=== PATIENT | female | born 1940 | race Hispanic/Latino ===

== ENCOUNTER 2020-05-04 17:22 | Inpatient (IN) | payer BC, MEDICARE, OTHER ==
[~2020-05-04] VITALS: Ht 144.8 cm; Wt 50.7 kg
[2020-05-04 17:53] LABS: ABG BASE EXCESS 1.7 mmol/L (-2.0-3.0); ABG HCO3 26.2 mmol/L (21.0-28.0); ABG OXYGEN SATURATION 89.9 % (95.0-99.0); ABG PCO2 41 mmHg (32-45)
[2020-05-04 17:54] LABS: BASOPHILS % (AUTO) 0.2 % (0.0-5.0); EOSINOPHILS % (AUTO) 0.1 % (0.0-8.0); HEMATOCRIT 31.6 % (36-48); LYMPHOCYTES % (AUTO) 13.2 % (21.0-51.0); MEAN CORPUSCULAR HEMOGLOBIN 29.6 pg (27.0-33.0); MEAN CORPUSCULAR HGB CONC 33.5 g/dL (32.0-36.0); MEAN CORPUSCULAR VOLUME 88.3 fL (79-99); NEUTROPHILS % (AUTO) 76.6 % (40.0-77.0); PLATELET COUNT (AUTO) 310 K/uL (130-400); RED BLOOD CELL COUNT(AUTO) 3.58 MIL/uL (4.00-5.50); RED CELL DISTRIBUTION WIDTH 13.4 % (11.0-15.5); WHITE BLOOD COUNT (AUTO) 8.7 K/uL (4.8-10.8)
[2020-05-04 18:16] LABS: INR 1.06 (0.85-1.15); PROTHROMBIN TIME 11.3 SEC (9.6-11.6)
[2020-05-04 18:18] LABS: PARTIAL THROMBOPLASTIN TIME 25.9 SEC (26.3-35.5)
[2020-05-04 18:19] LABS: ALBUMIN 2.8 g/dL (3.5-5.0); BILIRUBIN,TOTAL 0.5 mg/dL (0.2-1.0); POTASSIUM 3.9 mmol/L (3.5-5.1); TOTAL PROTEIN, SERUM 8.2 g/dL (6.0-8.3)
[2020-05-04 18:29] LABS: B-TYPE NATRIURETIC PEPTIDE 120 pg/mL (0-100)
[2020-05-04 18:37] LABS: CREATININE 1.2 mg/dL (0.5-1.5)
[2020-05-04] MEDS ORDERED: CEFTRIAXONE 1G VIAL ONE ×2 (19:04→21:49)
[2020-05-04] MEDS ORDERED: AZITHROMYCIN 500MG+NS 250ML 250 ML IV ONE (19:04)
[2020-05-04] MEDS ORDERED: LACTULOSE 20 GM/30 ML UDCUP PO PRN (20:15)
[2020-05-04] MEDS ORDERED: DOXYCYCLINE 100MG+NS 250ML IV SCH (20:15)
[2020-05-04] MEDS ORDERED: DiphenhydrAMINE HCL 50 MG/ML VIAL IV PRN (20:15)
[2020-05-04] MEDS ORDERED: ERGOCALCIFEROL (VITAMIN D2) 50,000 UNIT CAPSULE PO ONE (20:15)
[2020-05-04] MEDS ORDERED: DIPHENHYDRAMINE HCL 25 MG CAPSULE PO PRN (20:15)
[2020-05-04] MEDS ORDERED: ONDANSETRON 4MG INJ IV PRN (20:15)
[2020-05-04] MEDS ORDERED: MAG/ALUM/SIMETH 30 ML UDCUP PO PRN (20:15)
[2020-05-04] MEDS ORDERED: GUAIFENESIN-DM 200/20 MG 10 ML PO PRN (20:15)
[2020-05-04] MEDS ORDERED: NITROGLYCERIN 0.4 MG SL TAB SL PRN (20:15)
[2020-05-04] MEDS: DEXAMETHASONE SOD PHOSPHATE 4 MG/ML 1ML VIAL IVP SCH (20:15)
[2020-05-04] MEDS: CEFTRIAXONE 1G VIAL IVP SCH (20:15)
[2020-05-04] MEDS ORDERED: ACETAMINOPHEN 325 MG TAB PO PRN ×2 (20:15)
[2020-05-04] MEDS ORDERED: ASPIRIN 325 MG TABLET ONE (20:29)
[2020-05-04] MEDS ORDERED: LORAZEPAM 1 MG TABLET PO ONE (21:00)
[2020-05-04] MEDS: ACETYLCYSTEINE 600 MG CAPSULE PO SCH (21:00)
[2020-05-04] MEDS: DOXYCYCLINE 100MG+NS 250ML 250 ML IV SCH (21:00)
[2020-05-04] MEDS: BUSPIRONE HCL 5 MG TABLET PO SCH (21:00)
[2020-05-04 21:30] LABS: HEMOGLOBIN A1C 6.8 % (4.0-6.0)
[2020-05-04] MEDS ORDERED: ERGOCALCIFEROL (VITAMIN D2) 50,000 UNIT CAPSULE ONE (21:47)
[2020-05-04] MEDS ORDERED: DEXAMETHASONE SOD PHOSPHATE 4 MG/ML 5ML VIAL ONE (21:48)
[2020-05-04] MEDS ORDERED: ACETYLCYSTEINE 600 MG CAPSULE ONE (21:48)
[2020-05-04] MEDS ORDERED: LORAZEPAM 1 MG TABLET ONE (21:49)
[2020-05-04] MEDS ORDERED: DOXYCYCLINE 100MG+NS 250ML 250 ML IV ONE (21:49)
[2020-05-04] MEDS ORDERED: FAMOTIDINE 20MG VIAL IV ONE (21:50)
[2020-05-05] VITALS: BP 144/65
[2020-05-05 05:03] VITALS: BP 141/77
[2020-05-05 05:08] LABS: HEMATOCRIT 27.5 % (36-48); LYMPHOCYTES % (AUTO) 10.7 % (21.0-51.0); MEAN CORPUSCULAR HEMOGLOBIN 30.2 pg (27.0-33.0); MEAN CORPUSCULAR HGB CONC 33.8 g/dL (32.0-36.0); MEAN CORPUSCULAR VOLUME 89.3 fL (79-99); MONOCYTES % (AUTO) 3.2 % (3.0-13.0); NEUTROPHILS % (AUTO) 85.1 % (40.0-77.0); PLATELET COUNT (AUTO) 269 K/uL (130-400); RED BLOOD CELL COUNT(AUTO) 3.08 MIL/uL (4.00-5.50); RED CELL DISTRIBUTION WIDTH 13.4 % (11.0-15.5); WHITE BLOOD COUNT (AUTO) 6.2 K/uL (4.8-10.8)
[2020-05-05 05:29] LABS: ALBUMIN 2.7 g/dL (3.5-5.0); BILIRUBIN,TOTAL 0.4 mg/dL (0.2-1.0); CRP QUANTITATIVE 43.7 mg/L (0.00-9.0); POTASSIUM 4.5 mmol/L (3.5-5.1); TOTAL PROTEIN, SERUM 7.5 g/dL (6.0-8.3)
[2020-05-05] MEDS: INSULIN HUMULIN R 100 UNIT/ML 3ML SQ SCH ×4 (05:52→20:41)
[2020-05-05 08:00] VITALS: BP 151/63
[2020-05-05] MEDS: CEFTRIAXONE 1G VIAL IVP SCH ×2 (08:47→20:39)
[2020-05-05] MEDS: BUSPIRONE HCL 5 MG TABLET PO SCH ×2 (08:47→20:39)
[2020-05-05] MEDS: ENOXAPARIN SODIUM 40 MG/0.4 ML SYRINGE SQ SCH (08:47)
[2020-05-05] MEDS: DOXYCYCLINE 100MG+NS 250ML 250 ML IV SCH ×2 (08:47→20:40)
[2020-05-05] MEDS: FAMOTIDINE 20MG TAB PO SCH (08:48)
[2020-05-05] MEDS: ASCORBIC ACID 500 MG TAB PO SCH (08:48)
[2020-05-05] MEDS: ACETYLCYSTEINE 600 MG CAPSULE PO SCH ×2 (08:48→20:39)
[2020-05-05] MEDS: ZINC SULFATE 220 CAPSULE PO SCH (08:48)
[2020-05-05] MEDS ORDERED: FAMOTIDINE 20MG VIAL IV SCH (09:00)
[2020-05-05] MEDS: PHARMACY COMMUNICATION**REMDESIVIR ORDER MISC SCH ×4 (10:00→20:09)
[2020-05-05] MEDS ORDERED: FOLI1TAB85 PO (11:16)
[2020-05-05] MEDS ORDERED: ATOR-2 PO (11:16)
[2020-05-05] MEDS ORDERED: AMLO5TAB4 PO (11:16)
[2020-05-05] MEDS ORDERED: BUSP5TAB3 PO (11:16)
[2020-05-05] MEDS ORDERED: METO75TA PO (11:16)
[2020-05-05] MEDS ORDERED: INSLAN SQ (11:16)
[2020-05-05 12:00] VITALS: BP 124/53
[2020-05-05 16:07] VITALS: BP 129/48
[2020-05-05] MEDS: DEXAMETHASONE SOD PHOSPHATE 4 MG/ML 1ML VIAL IVP SCH (20:39)
[2020-05-05] MEDS: INSULIN GLARGINE 100 UNITS/ML 10 ML VIAL SQ SCH (20:41)
[2020-05-05 21:37] VITALS: BP 168/74
[2020-05-06] VITALS (7 sets, daily range): BP systolic 134–188; BP diastolic 44–79
[2020-05-06] MEDS: PHARMACY COMMUNICATION**REMDESIVIR ORDER MISC SCH ×6 (02:00→22:00)
[2020-05-06 05:42] LABS: HEMATOCRIT 29.8 % (36-48); LYMPHOCYTES % (AUTO) 9.4 % (21.0-51.0); MEAN CORPUSCULAR HEMOGLOBIN 29.3 pg (27.0-33.0); MEAN CORPUSCULAR HGB CONC 32.9 g/dL (32.0-36.0); MEAN CORPUSCULAR VOLUME 89.2 fL (79-99); MONOCYTES % (AUTO) 3.7 % (3.0-13.0); NEUTROPHILS % (AUTO) 86.4 % (40.0-77.0); PLATELET COUNT (AUTO) 304 K/uL (130-400); RED BLOOD CELL COUNT(AUTO) 3.34 MIL/uL (4.00-5.50); RED CELL DISTRIBUTION WIDTH 13.3 % (11.0-15.5); WHITE BLOOD COUNT (AUTO) 8.4 K/uL (4.8-10.8)
[2020-05-06 06:10] LABS: ALBUMIN 2.5 g/dL (3.5-5.0); BILIRUBIN,TOTAL 0.4 mg/dL (0.2-1.0); CRP QUANTITATIVE 22.4 mg/L (0.00-9.0); POTASSIUM 4.2 mmol/L (3.5-5.1); TOTAL PROTEIN, SERUM 7.4 g/dL (6.0-8.3)
[2020-05-06] MEDS: INSULIN HUMULIN R 100 UNIT/ML 3ML SQ SCH ×4 (06:30→21:00)
[2020-05-06] MEDS: AMLODIPINE 5 MG TAB PO SCH (09:20)
[2020-05-06] MEDS: ZINC SULFATE 220 CAPSULE PO SCH (09:20)
[2020-05-06] MEDS: FAMOTIDINE 20MG TAB PO SCH (09:20)
[2020-05-06] MEDS: ACETYLCYSTEINE 600 MG CAPSULE PO SCH ×2 (09:20→20:48)
[2020-05-06] MEDS: BUSPIRONE HCL 5 MG TABLET PO SCH ×3 (09:20→20:48)
[2020-05-06] MEDS: ASCORBIC ACID 500 MG TAB PO SCH (09:20)
[2020-05-06] MEDS: CEFTRIAXONE 1G VIAL IVP SCH ×2 (09:21→20:47)
[2020-05-06] MEDS: DOXYCYCLINE 100MG+NS 250ML 250 ML IV SCH ×2 (09:22→20:47)
[2020-05-06] MEDS: ENOXAPARIN SODIUM 40 MG/0.4 ML SYRINGE SQ SCH (09:22)
[2020-05-06] MEDS: METOPROLOL TARTRATE 50 MG TAB PO SCH ×2 (10:00→20:48)
[2020-05-06] MEDS: DEXAMETHASONE SOD PHOSPHATE 4 MG/ML 1ML VIAL IVP SCH (20:47)
[2020-05-06] MEDS: INSULIN GLARGINE 100 UNITS/ML 10 ML VIAL SQ SCH (20:58)
[2020-05-07] MEDS: PHARMACY COMMUNICATION**REMDESIVIR ORDER MISC SCH ×7 (02:00→23:00)
[2020-05-07 07:02] VITALS: BP 136/63
[2020-05-07 07:26] VITALS: BP 153/70
[2020-05-07] MEDS: INSULIN HUMULIN R 100 UNIT/ML 3ML SQ SCH ×4 (07:30→20:49)
[2020-05-07 08:47] LABS: HEMATOCRIT 30.7 % (36-48); LYMPHOCYTES % (AUTO) 8.6 % (21.0-51.0); MEAN CORPUSCULAR HEMOGLOBIN 30.1 pg (27.0-33.0); MEAN CORPUSCULAR HGB CONC 34.2 g/dL (32.0-36.0); MONOCYTES % (AUTO) 4.3 % (3.0-13.0); NEUTROPHILS % (AUTO) 86.7 % (40.0-77.0); PLATELET COUNT (AUTO) 320 K/uL (130-400); RED BLOOD CELL COUNT(AUTO) 3.49 MIL/uL (4.00-5.50); RED CELL DISTRIBUTION WIDTH 13.2 % (11.0-15.5); WHITE BLOOD COUNT (AUTO) 9.4 K/uL (4.8-10.8)
[2020-05-07] MEDS: ACETYLCYSTEINE 600 MG CAPSULE PO SCH ×2 (08:54→20:48)
[2020-05-07] MEDS: FAMOTIDINE 20MG TAB PO SCH (08:54)
[2020-05-07] MEDS: CEFTRIAXONE 1G VIAL IVP SCH ×2 (08:54→20:48)
[2020-05-07] MEDS: BUSPIRONE HCL 5 MG TABLET PO SCH ×3 (08:55→20:48)
[2020-05-07] MEDS: ASCORBIC ACID 500 MG TAB PO SCH (08:55)
[2020-05-07] MEDS: ZINC SULFATE 220 CAPSULE PO SCH (08:55)
[2020-05-07] MEDS: AMLODIPINE 5 MG TAB PO SCH (08:55)
[2020-05-07] MEDS: DOXYCYCLINE 100MG+NS 250ML 250 ML IV SCH ×2 (08:55→20:51)
[2020-05-07] MEDS: ENOXAPARIN SODIUM 40 MG/0.4 ML SYRINGE SQ SCH (08:56)
[2020-05-07] MEDS: METOPROLOL TARTRATE 50 MG TAB PO SCH ×2 (09:00→20:47)
[2020-05-07 09:02] LABS: ALBUMIN 2.7 g/dL (3.5-5.0); BILIRUBIN,TOTAL 0.5 mg/dL (0.2-1.0); CRP QUANTITATIVE 9.1 mg/L (0.00-9.0); POTASSIUM 4.2 mmol/L (3.5-5.1); TOTAL PROTEIN, SERUM 7.6 g/dL (6.0-8.3)
[2020-05-07 11:27] VITALS: BP 125/61
[2020-05-07] MEDS: PHARMACY COMMUNICATION MISC SCH ×4 (12:14→23:00)
[2020-05-07 16:00] VITALS: BP 171/71
[2020-05-07] MEDS ORDERED: ZIPRASIDONE MESYLATE 20 MG/VIAL IM SCH (17:00)
[2020-05-07 20:00] VITALS: BP 168/72
[2020-05-07] MEDS: DEXAMETHASONE SOD PHOSPHATE 4 MG/ML 1ML VIAL IVP SCH (20:48)
[2020-05-07] MEDS: INSULIN GLARGINE 100 UNITS/ML 10 ML VIAL SQ SCH (20:49)
[2020-05-08] MEDS: INSULIN HUMULIN R 100 UNIT/ML 3ML SQ SCH ×4 (05:08→21:00)
[2020-05-08 06:04] LABS: BASOPHILS % (AUTO) 0.1 % (0.0-5.0); LYMPHOCYTES % (AUTO) 10.5 % (21.0-51.0); MEAN CORPUSCULAR HEMOGLOBIN 29.2 pg (27.0-33.0); MEAN CORPUSCULAR HGB CONC 33.2 g/dL (32.0-36.0); MEAN CORPUSCULAR VOLUME 87.8 fL (79-99); MONOCYTES % (AUTO) 2.2 % (3.0-13.0); NEUTROPHILS % (AUTO) 86.8 % (40.0-77.0); PLATELET COUNT (AUTO) 328 K/uL (130-400); RED BLOOD CELL COUNT(AUTO) 3.53 MIL/uL (4.00-5.50); RED CELL DISTRIBUTION WIDTH 13.2 % (11.0-15.5); WHITE BLOOD COUNT (AUTO) 7.7 K/uL (4.8-10.8)
[2020-05-08 07:16] LABS: ALBUMIN 2.6 g/dL (3.5-5.0); BILIRUBIN,TOTAL 0.5 mg/dL (0.2-1.0); CREATININE 1.2 mg/dL (0.5-1.5); CRP QUANTITATIVE 4.9 mg/L (0.00-9.0); POTASSIUM 4.4 mmol/L (3.5-5.1); TOTAL PROTEIN, SERUM 7.2 g/dL (6.0-8.3)
[2020-05-08 08:00] VITALS: BP 191/81
[2020-05-08] MEDS: PHARMACY COMMUNICATION MISC SCH ×4 (08:00→20:00)
[2020-05-08] MEDS: FAMOTIDINE 20MG TAB PO SCH (09:47)
[2020-05-08] MEDS: ASCORBIC ACID 500 MG TAB PO SCH (09:47)
[2020-05-08] MEDS: METOPROLOL TARTRATE 50 MG TAB PO SCH ×3 (09:47→21:00)
[2020-05-08] MEDS: CEFTRIAXONE 1G VIAL IVP SCH ×3 (09:47→20:48)
[2020-05-08] MEDS: ACETYLCYSTEINE 600 MG CAPSULE PO SCH ×3 (09:48→21:00)
[2020-05-08] MEDS: AMLODIPINE 5 MG TAB PO SCH (09:48)
[2020-05-08] MEDS: BUSPIRONE HCL 5 MG TABLET PO SCH ×4 (09:48→21:00)
[2020-05-08] MEDS: ZINC SULFATE 220 CAPSULE PO SCH (09:48)
[2020-05-08] MEDS: DOXYCYCLINE 100MG+NS 250ML 250 ML IV SCH ×3 (09:49→21:00)
[2020-05-08] MEDS: ENOXAPARIN SODIUM 40 MG/0.4 ML SYRINGE SQ SCH (09:49)
[2020-05-08] MEDS: PHARMACY COMMUNICATION**REMDESIVIR ORDER MISC SCH ×4 (10:36→22:00)
[2020-05-08 12:00] VITALS: BP 181/75
[2020-05-08 16:00] VITALS: BP 187/77
[2020-05-08] MEDS ORDERED: ZIPRASIDONE MESYLATE 20 MG/VIAL IM PRN ×2 (16:30→21:00)
[2020-05-08 19:47] VITALS: BP 160/70
[2020-05-08] MEDS: HYDRALAZINE 25MG TABLET PO SCH ×2 (20:47→21:00)
[2020-05-08] MEDS: TRAZODONE HCL 50 MG TAB PO SCH (20:47)
[2020-05-08] MEDS: DEXAMETHASONE SOD PHOSPHATE 4 MG/ML 1ML VIAL IVP SCH (20:48)
[2020-05-08] MEDS: INSULIN GLARGINE 100 UNITS/ML 10 ML VIAL SQ SCH (20:52)
[2020-05-09] VITALS (7 sets, daily range): BP systolic 113–186; BP diastolic 55–79
[2020-05-09] MEDS: PHARMACY COMMUNICATION**REMDESIVIR ORDER MISC SCH ×2 (02:00→06:00)
[2020-05-09] MEDS: PHARMACY COMMUNICATION MISC SCH ×3 (04:00→08:00)
[2020-05-09 06:12] LABS: EOSINOPHILS % (AUTO) 0.1 % (0.0-8.0); HEMATOCRIT 29.7 % (36-48); LYMPHOCYTES % (AUTO) 19.5 % (21.0-51.0); MEAN CORPUSCULAR HEMOGLOBIN 29.7 pg (27.0-33.0); MEAN CORPUSCULAR VOLUME 87.4 fL (79-99); MONOCYTES % (AUTO) 10.7 % (3.0-13.0); NEUTROPHILS % (AUTO) 69.3 % (40.0-77.0); PLATELET COUNT (AUTO) 280 K/uL (130-400); RED CELL DISTRIBUTION WIDTH 13.1 % (11.0-15.5); WHITE BLOOD COUNT (AUTO) 6.7 K/uL (4.8-10.8)
[2020-05-09 06:26] LABS: POTASSIUM 3.9 mmol/L (3.5-5.1)
[2020-05-09] MEDS: INSULIN HUMULIN R 100 UNIT/ML 3ML SQ SCH ×4 (06:28→21:00)
[2020-05-09] MEDS: FLUOXETINE HCL 10 MG CAPSULE PO SCH (09:00)
[2020-05-09] MEDS: ASCORBIC ACID 500 MG TAB PO SCH (09:15)
[2020-05-09] MEDS: AMLODIPINE 5 MG TAB PO SCH (09:16)
[2020-05-09] MEDS: FAMOTIDINE 20MG TAB PO SCH (09:16)
[2020-05-09] MEDS: HYDRALAZINE 25MG TABLET PO SCH (09:16)
[2020-05-09] MEDS: METOPROLOL TARTRATE 50 MG TAB PO SCH (09:16)
[2020-05-09] MEDS: ENOXAPARIN SODIUM 40 MG/0.4 ML SYRINGE SQ SCH (09:18)
[2020-05-09] MEDS: CEFTRIAXONE 1G VIAL IVP SCH ×2 (09:24→20:04)
[2020-05-09] MEDS: ZINC SULFATE 220 CAPSULE PO SCH (09:29)
[2020-05-09] MEDS: BUSPIRONE HCL 5 MG TABLET PO SCH ×2 (14:00→20:25)
[2020-05-09 14:03] LABS: THYROID STIMULATING HORMONE 0.6 uIU/mL (0.36-3.74)
[2020-05-09] MEDS: TRAZODONE HCL 50 MG TAB PO SCH (20:02)
[2020-05-09] MEDS: DEXAMETHASONE SOD PHOSPHATE 4 MG/ML 1ML VIAL IVP SCH (20:03)
[2020-05-09] MEDS: DOXYCYCLINE 100MG+NS 250ML 250 ML IV SCH (20:05)
[2020-05-09] MEDS: ACETYLCYSTEINE 600 MG CAPSULE PO SCH (20:25)
[2020-05-09] MEDS: INSULIN GLARGINE 100 UNITS/ML 10 ML VIAL SQ SCH (21:00)
[2020-05-10 03:45] VITALS: BP 152/67
[2020-05-10 05:26] LABS: MEAN CORPUSCULAR HEMOGLOBIN 29.5 pg (27.0-33.0); MEAN CORPUSCULAR HGB CONC 33.6 g/dL (32.0-36.0); MEAN CORPUSCULAR VOLUME 87.8 fL (79-99); MONOCYTES % (AUTO) 1.6 % (3.0-13.0); PLATELET COUNT (AUTO) 292 K/uL (130-400); RED BLOOD CELL COUNT(AUTO) 3.76 MIL/uL (4.00-5.50); RED CELL DISTRIBUTION WIDTH 13.1 % (11.0-15.5); WHITE BLOOD COUNT (AUTO) 5.6 K/uL (4.8-10.8)
[2020-05-10 05:34] LABS: CREATININE 1.1 mg/dL (0.5-1.5); POTASSIUM 4.5 mmol/L (3.5-5.1)
[2020-05-10] MEDS: INSULIN HUMULIN R 100 UNIT/ML 3ML SQ SCH ×4 (05:50→20:46)
[2020-05-10] MEDS: CEFTRIAXONE 1G VIAL IVP SCH (10:06)
[2020-05-10] MEDS: ENOXAPARIN SODIUM 40 MG/0.4 ML SYRINGE SQ SCH (10:06)
[2020-05-10] MEDS: BUSPIRONE HCL 5 MG TABLET PO SCH ×2 (10:07→14:30)
[2020-05-10] MEDS: DOXYCYCLINE 100MG+NS 250ML 250 ML IV SCH (10:07)
[2020-05-10] MEDS: METOPROLOL TARTRATE 50 MG TAB PO SCH ×2 (10:08→20:46)
[2020-05-10] MEDS: ASCORBIC ACID 500 MG TAB PO SCH (10:08)
[2020-05-10] MEDS: FLUOXETINE HCL 10 MG CAPSULE PO SCH (10:08)
[2020-05-10] MEDS: HYDRALAZINE 25MG TABLET PO SCH ×2 (10:08→20:37)
[2020-05-10] MEDS: FAMOTIDINE 20MG TAB PO SCH (10:08)
[2020-05-10] MEDS: ZINC SULFATE 220 CAPSULE PO SCH (10:09)
[2020-05-10 10:15] VITALS: BP 158/67
[2020-05-10] MEDS ORDERED: ASPI-1005 PO (12:19)
[2020-05-10] MEDS ORDERED: DEXA6TAB7 PO (12:19)
[2020-05-10] MEDS ORDERED: PANT40TA55 PO (12:19)
[2020-05-10] MEDS ORDERED: AMLO10TA4 PO (12:19)
[2020-05-10] MEDS: ACETYLCYSTEINE 600 MG CAPSULE PO SCH ×2 (14:30→20:36)
[2020-05-10 18:04] VITALS: BP 135/68
[2020-05-10 19:00] VITALS: BP 132/51
[2020-05-10] MEDS: DEXAMETHASONE SOD PHOSPHATE 4 MG/ML 1ML VIAL IVP SCH (20:34)
[2020-05-10] MEDS: INSULIN GLARGINE 100 UNITS/ML 10 ML VIAL SQ SCH (20:48)
[2020-05-10 23:00] VITALS: BP 133/53
[2020-05-11 04:00] VITALS: BP 104/52
[2020-05-11] MEDS: INSULIN HUMULIN R 100 UNIT/ML 3ML SQ SCH (07:30)
[2020-05-11 08:00] VITALS: BP 173/77
[2020-05-11] MEDS: ACETYLCYSTEINE 600 MG CAPSULE PO SCH (09:29)
[2020-05-11] MEDS: METOPROLOL TARTRATE 50 MG TAB PO SCH (09:30)
[2020-05-11] MEDS: ASCORBIC ACID 500 MG TAB PO SCH (09:30)
[2020-05-11] MEDS: FLUOXETINE HCL 10 MG CAPSULE PO SCH (09:30)
[2020-05-11] MEDS: FAMOTIDINE 20MG TAB PO SCH (09:31)
[2020-05-11] MEDS: HYDRALAZINE 25MG TABLET PO SCH (09:31)
[2020-05-11] MEDS: AMLODIPINE 5 MG TAB PO SCH (09:31)
[2020-05-11] MEDS: ENOXAPARIN SODIUM 40 MG/0.4 ML SYRINGE SQ SCH (09:32)
[2020-05-11] MEDS: ZINC SULFATE 220 CAPSULE PO SCH (09:33)
[2020-05-11 15:30] VITALS: BP 138/60
== END 2020-05-11 15:35 | disposition home or self-care (01) | DRG 177 ==
LOC: EDH 17:22 → EDHIP 20:15 → 2AH 23:14
PROVIDERS: ADMIT Family Medicine; ATTEND Family Medicine
PROC: XW13325 Transfusion of Convalescent Plasma (Nonautologous) into Peripheral Vein, Percutaneous Approach, New Technology Group 5 (ICD-10-PCS; principal; 2020-05-05)
DX: U07.1 COVID-19 (principal); J12.82 Pneumonia due to coronavirus disease 2019; J96.01 Acute respiratory failure with hypoxia; N39.0 Urinary tract infection, site not specified; G93.49 Other encephalopathy; F05 Delirium due to known physiological condition; E11.51 Type 2 diabetes mellitus with diabetic peripheral angiopathy without gangrene; I12.9 Hypertensive chronic kidney disease with stage 1 through stage 4 chronic kidney disease, or unspecified chronic kidney disease; E78.5 Hyperlipidemia, unspecified; N18.9 Chronic kidney disease, unspecified; F32.9 Major depressive disorder, single episode, unspecified; F03.90 Unspecified dementia, unspecified severity, without behavioral disturbance, psychotic disturbance, mood disturbance, and anxiety; E11.22 Type 2 diabetes mellitus with diabetic chronic kidney disease; R53.81 Other malaise; Z83.3 Family history of diabetes mellitus; Z74.01 Bed confinement status
CPT/HCPCS: 36415; 36600; 70450; 71045; 71250; 80048; 80053; 82550; 82607; 82728; 82803; 82948; 83036; 83605; 83615; 83880; 84145; 84443; 85025; 85378; 85610; 85730; 86140; 86850; 86900; 86901; 86927; 87040; 87077; 87186; 87426; 93005; 93970; 94760; 99291; G0378; J0456; J0696; J1100; J1650; J3486; J3490

== ENCOUNTER → 2023-04-01 | Outpatient (CLI) | payer OTHER ==
[~2023-04-01] MED LIST: AMLO10TA4 PO; ASPI-1005 PO; ATOR-2 PO; BUSP5TAB3 PO; DEXA6TAB7 PO; FOLI1TAB85 PO; INSLAN SQ; IOHEXOL-350 50ML VIAL IV ONE; METO75TA PO; PANT40TA55 PO
== END | disposition home or self-care (01) ==
LOC: RAH 08:43
PROVIDERS: ATTEND Internal Medicine
DX: G31.9 Degenerative disease of nervous system, unspecified (principal); R41.3 Other amnesia; R90.82 White matter disease, unspecified
CPT/HCPCS: 70470; Q9967

== ENCOUNTER → 2023-08-05 | Outpatient (CLI) | payer OTHER ==
[~2023-08-05] MED LIST changes: -IOHEXOL-350 50ML VIAL IV ONE
== END | disposition home or self-care (01) ==
LOC: RAH 12:55
PROVIDERS: ATTEND Internal Medicine
DX: I08.8 Other rheumatic multiple valve diseases (principal); R01.1 Cardiac murmur, unspecified
CPT/HCPCS: 93306

== ENCOUNTER → 2024-03-09 | Outpatient (CLI) | payer OTHER ==
--- NOTE | 2024-03-16 06:49 | HMCSR ---
APPROVED REPORT Laterality: Bilateral Doppler Spectral Velocity Analysis PSV / EDVPSV / EDV ECA (R) 198 / cm/sECA (L) 218 / cm/s dICA (R) 141 / 27 cm/sdICA (L) 246 / 31 cm/s Leonidas (R) 125 / 25 cm/smICA (L) 139 / 28 cm/s pICA (R) 223 / 36 cm/spICA (L) 122 / 20 cm/s dCCA (R) 88 / 14 cm/sdCCA (L) 107 / 16 cm/s mCCA (R) 76 / 17 cm/smCCA (L) 87 / 14 cm/s pCCA (R) 88 / 11 cm/spCCA (L) 73 / 15 cm/s Vert (R) 94 / cm/sVert (L) 87 / cm/s Subl. (R) 218 / cm/sSubl. (L) 131 / cm/s ICA/CCA 2.53ICA/CCA 2.30 Technologist Impression Mild heterogenous plaque noted in the bilateral carotid arteries. There is evidence of 60-70% stenosis in the right and left internal carotid artery. Tortuosity noted in the left internal carotid artery. Elevated velocities noted in the bilateral external carotid arteries. The bilateral vertebral arteries reflect antegrade flow. Elevated velocities noted in the right subclavian artery. Conclusion There is evidence of 60-70% stenosis in the right and left internal carotid artery. Conclusion There is evidence of 60-70% stenosis in the right and left internal carotid artery.
--- NOTE | 2024-03-16 06:49 | HMCSR ---
APPROVED REPORT Renal Artery Doppler Origin (R) 155.2/29.1 cm/secOrigin (L) 215.9/43.7 cm/sec Proximal (R) 154.8/25.8 cm/secProximal (L) 114.0/26.7 cm/sec Mid (R) 158.8/21.8 cm/secMid (L) 111.6/12.1 cm/sec Distal (R) 121.1/25.8 cm/secDistal (L) 133.4/24.3 cm/sec Renal/Aorta Ratio (R) 0.61Renal Aorta Ratio (L) 0.83 Resistive Index (R) 0.82Resistive Index (L) 0.75 Segmental A. (R) 101.5/18.5 cm/secLt. Segmental A. (L) 87.3/21.8 cm/sec Renal Measurements Kidney Size (R) 9.2x4.9x cmKidney Size (L)8.5x4.3x cm Aortic Doppler VelocityWaveform Aorta Mid. 259.0 cm/sec Technologist Impression The right kidney appears normal shape in size but is noted to have an abnormal resistive index. The left kidney appears atrophied with multiple renal cysts noted, normal resistive index. Based on the renal/aortic ratio there is no evidence of significant renal artery stenosis. Moderately elevated velocities noted in the mid abdominal aorta. Conclusion Based on the renal/aortic ratio there is no evidence of significant stenosis in the renal arteries. Conclusion Based on the renal/aortic ratio there is no evidence of significant stenosis in the renal arteries.
--- NOTE | 2024-03-16 06:50 | HMCSR ---
APPROVED REPORT Laterality: Bilateral VELOCITY AND DOPPLER WAVEFORM ANALYSIS SENIOR UI UX DEVELOPER (R) 138.7cm/sec, Biphasic, SENIOR UI UX DEVELOPER (L) 223.0cm/sec, Biphasic, Prof Fem Art. (R) 58.7cm/sec, Biphasic, Prof Fem Art. (L) 157.9cm/sec, Biphasic, Fem Art Prox. (R) 60.4cm/sec, Biphasic, Fem Art Prox. (L) 117.9cm/sec, Biphasic, Fem Art Mid. (R) 96.2cm/sec, Biphasic, Fem Art Mid. (L) 114.8cm/sec, Biphasic, Fem Art Dist (R) 79.9cm/sec, Biphasic, Fem Art Dist. (L) 81.3cm/sec, Biphasic, Pop Art(AK) (R) 49.8cm/sec, Biphasic, Pop Art (AK) (L) 79.0cm/sec, Biphasic, Pop Art(BK) (R) 64.8cm/sec, Biphasic, Pop Art (BK) (L) 76.6cm/sec, Biphasic, NETWORK ADMINISTRATOR Prox. (R) 57.9cm/sec, Biphasic, NETWORK ADMINISTRATOR Prox. (L) 71.8cm/sec, Biphasic, NETWORK ADMINISTRATOR Mid. (R) 57.9cm/sec, Biphasic, NETWORK ADMINISTRATOR Mid. (L) 62.0cm/sec, Biphasic, NETWORK ADMINISTRATOR Dist. (R) 52.1cm/sec, Biphasic, NETWORK ADMINISTRATOR Dist. (L) 68.5cm/sec, Biphasic, Per Art Dist. (R) 37.7cm/sec, Biphasic, Per Art Dist. (L) 34.7cm/sec, Biphasic, RIA Prox. (R) 61.0cm/sec, Biphasic, RIA Prox. (L) 99.6cm/sec, Biphasic, RIA Mid. (R) 70.0cm/sec, Biphasic, RIA Mid. (L) 76.4cm/sec, Biphasic, RIA Dist. (R) 54.7cm/sec, Biphasic, RIA Dist. (L) 86.8cm/sec, Biphasic, Technologist Impression Diffuse atherosclerosis throughout the bilateral lower extremities with no evidence of significant ar terial insufficiency. Conclusion No evidence of significant arterial insufficiency of bilateral lower extremities. Conclusion No evidence of significant arterial insufficiency of bilateral lower extremities.
--- NOTE | 2024-03-16 06:50 | HMCSR ---
APPROVED REPORT Bilateral Lower Extremity Venous Study for DVT., Venous Competence.Study performed with patient in up right position or in reverse Trendelenburg. Vein Imaging CFV (R): Normal flow, augmentation and compression. No evidence of DVT, Diameter 8.4 mm SFJ (R): Normal flow, augmentation and compression. No evidence of DVT. FEM (R): Normal flow, augmentation and compression. No evidence of DVT. POP (R): Normal flow, augmentation and compression. No evidence of DVT. DFV (R): Normal flow, augmentation and compression. No evidence of DVT. PTV (R): Normal flow, augmentation and compression. No evidence of DVT. Peroneals (R): Normal flow, augmentation and compression. No evidence of DVT. GAS (R): Normal flow, augmentation and compression. No evidence of DVT. CFV (L): Normal flow, augmen tation and compression. No evidence of DVT, Diameter 8.4 mm SFJ (L): Normal flow, augmentation and compression. No evidence of DVT. FEM (L): Normal flow, augmentation and compression. No evidence of DVT.Normal flow, augmentation and compression. No evidence of DVT. POP (L): Normal flow, augmentation and compression. No evidence of DVT. DFV (L): Normal flow, augmentation and compression. No evidence of DVT. PTV (L): Normal flow, augmentation and compression. No evidence of DVT. Peroneals (L): Normal flow, augmentation and compression. No evidence of DVT. GAS (L): Normal flow, augmentation and compression. No evidence of DVT. Technologist Impression The deep veins of the bilateral lower extremities appear patent and compressible without evidence of thrombus. Pulsatile waveforms noted bilaterally. RGSV Junction 4.1 mm 0 ms Mid thigh 2.0 mm 0 ms Knee 2.3 mm 0 ms Mid- calf-Occluded RSSV Prox 1.6 mm 0 ms Mid 1.7 mm 0 ms LGSV Junction 4.1 mm 0 ms Mid thigh 1.6 mm 0 ms Knee 1.6 mm 0 ms [id number] LSSV-Occluded Conclusion No evidence of DVT Pulsatile waveforms noted which may be indicative of proximal iliac vein compression Clinical correlation recommended Conclusion No evidence of DVT Pulsatile waveforms noted which may be indicative of proximal iliac vein compression Clinical correlation recommended
== END | disposition home or self-care (01) ==
LOC: SHCH 07:53
PROVIDERS: ATTEND Internal Medicine Cardiovascular Disease
DX: I65.23 Occlusion and stenosis of bilateral carotid arteries (principal); I70.293 Other atherosclerosis of native arteries of extremities, bilateral legs; I87.1 Compression of vein; I87.2 Venous insufficiency (chronic) (peripheral); I25.10 Atherosclerotic heart disease of native coronary artery without angina pectoris; E78.5 Hyperlipidemia, unspecified; I13.10 Hypertensive heart and chronic kidney disease without heart failure, with stage 1 through stage 4 chronic kidney disease, or unspecified chronic kidney disease; E11.22 Type 2 diabetes mellitus with diabetic chronic kidney disease; N18.9 Chronic kidney disease, unspecified
CPT/HCPCS: 93880; 93925; 93970; 93975